=== PATIENT | female | born 1960 | race Hispanic/Latino ===

== ENCOUNTER 2017-06-30 10:43 | Inpatient (IN) | payer BC, OTHER ==
[~2017-06-30] VITALS: Ht 160 cm; Wt 104.8 kg
--- NOTE | 2017-10-10 17:24 | NUR ---
PATIENT IS HERE TODAY FOR PREADMISSION APPOINTMENT. SHE IS SCHEDULED FOR A LEFT TOTAL KNEE ARTHROPLASY ON 10/24/17. PATIENT IS ICELANDIC SPEAKING BUT ABLE TO COMMUNICATE VERY WELL WITH ME. SHE STATES SHE IS NOT SURE WHICH FAMILY MEMBER WILL BE TRANSPORTING HER HOME WHEN SHE IS DISCHARGED BUT HER SISTER AND BROTHER ARE SUPPOSED TO BE COMING FROM [place]. SHE IS CURRENTLY TAKING CARE OF HER THREE GRANDCHILDREN SO SHE IS ARRANGING CARE FOR THEM ALSO. SHE HAS FOUR STEPS UP ON TO THE PORCH AT HER HOME AND NO STEPS ONCE INSIDE THE HOME. SHE THINKS SHE MAY HAVE A WALKER AT HOME BUT IS GOING TO CHECK THAT IT IS THE CORRECT TYPE. SHE HAS A TUB/SHOWER COMBO THAT SHE IS CONCERNED ABOUT STEPPING UP AND INTO. WE TALKED ABOUT A SHOWER CHAIR OR BENCH AND SHE HAS A HAND HELD SHOWER HEAD. SHE WOULD LIKE TO HAVE PHYSICAL THERAPY AT [facility] SINCE SHE LIVES VERY CLOSE. THIS INFORMATION WILL BE SENT TO DR LOPEZ OFFICE AND TO THE MOBILE [facility]C [facility] FOR FOLLOW UP.
[2017-10-11] MEDS ORDERED: GLUCOPHAGE1000 MG PO (16:59)
[2017-10-11] MEDS ORDERED: VOLTAREN100 GM TOP (16:59)
[2017-10-11] MEDS ORDERED: HYDROCHLOROTHIA25 MG PO (17:00)
[2017-10-11] MEDS ORDERED: LANSOPRAZOLE30 MG PO (17:00)
[2017-10-11] MEDS ORDERED: LISINOPRIL40 MG PO (17:00)
[2017-10-11] MEDS ORDERED: LEVEMIR100 UNIT/1 SUB-Q (17:01)
[2017-10-11] MEDS ORDERED: AMLODIPINE BESYL5 MG PO (17:01)
[2017-10-11] MEDS ORDERED: GLIPIZIDE5 MG PO (17:01)
[2017-10-11] MEDS ORDERED: TERAZOSIN HCL2 MG PO (17:01)
[2017-10-11] MEDS ORDERED: EXCEDRIN MIGRA1 EAC2 PO (17:02)
[2017-10-11] MEDS ORDERED: ROSUVASTATIN CA10 MG PO (17:02)
--- NOTE | 2017-10-24 11:44 | NUR ---
10/24/17 1144 Chanel Rowe 1130 PT ARRIVED WITH 6L VIA MASK AND MAINTAINING OWN AIRWAY. PT ASLEEP OFF AND ON. VSS. 1139 O2 REMOVED, O2 SAT 100%. 1145 PT DENIES NAUSEA AND PAIN.
--- NOTE | 2017-10-24 12:20 | NUR ---
received pt to floor a@ 1220 via stretcher. cryo cuff on left knee. dressing is c/d/i with ria wrap in place. pt reports no pain, no itching, no nausea. slightly dizzy on the ride to ms. nausea patck in plce behind right ear. tedhose, scd's in place bilat. d5ns with 20meq @ 125. pt is drousy but is arousable to sound. pt is a/o x4.lungs sound clear throughout. heart sounds normal. continual pulse ox on. pt satuations @ 91% on ra. heart rate is normal @ 83. call light within reach.
--- NOTE | 2017-10-24 12:52 | NUR ---
PATIENT RESTING IN BED. FRESH ICE WATER. PATIENTS FAMILY IN ROOM. CALL LIGHT WITHIN REACH. NO OTHER NEEDS AT THIS TIME.
--- NOTE | 2017-10-24 13:31 | OR ---
[facility] [address] [place], [place] [address] Signed DATE OF OPERATION: 10/24/2017 SURGEON: Sabina Calle MD PREOPERATIVE DIAGNOSIS: Degenerative joint disease, left knee. POSTOPERATIVE DIAGNOSIS: Degenerative joint disease, left knee. PROCEDURE PERFORMED: Left total knee arthroplasty with computer navigation. GERIATRIC PERSONAL CARE AIDE: MIGUEL Bell. Yoana was present in critical positioning, retraction, and wound closure. ANESTHESIA: Spinal. BLOOD LOSS: Minimal. TOURNIQUET TIME: 57 minutes. IMPLANTS: Milton Triathlon size 4 femur, 3 tibia, 11 mm insert, and a 32 patella. BRIEF HISTORY: Lorraine is a 57-year-old female with severe arthritis in both knees. She had undergone nonoperative treatment for years and failed to get good satisfaction. Risks and benefits of operative treatment were discussed with her and she elected to proceed. DESCRIPTION OF PROCEDURE: Once consent was obtained, she was taken to the operating room. After adequate anesthesia, she was placed on operating room table. All downside pressure points are well padded. Left hip was placed on a bump and tourniquet was placed on the proximal thigh. Leg was then prepped and draped in the standard sterile fashion, exsanguinated using Esmarch bandage. Tourniquet inflated to 300 mmHg due to her hypertension. Electronically Signed By: SABINA CALLE MD 10/24/17 1331 PATIENT NAME: LORRAINE SO OPERATIVE REPORT DATE OF : 64 REPORT #: [id number] PHYSICIAN: SABINA CALLE MD PCP: VAN SHOEMAKER REPORT IS CONFIDENTIAL AND NOT TO BE RELEASED WITHOUT AUTHORIZATION [facility] [address], [place] [address] Signed Standard anterior approach through curved incision was taken through skin and subcutaneous tissue. Median parapatellar arthrotomy was performed. The infrapatellar fat pad was excised and the MCL was elevated of a sleeve around the posterior medial corner. Anterior horns of menisci were transected as was the ACL. PCL was found to be intact. The navigation guide was pinned to the distal femur and the femur was registered with the computer. The cutting block was then pinned in neutral alignment. The distal femoral cut was made. Distal femur was sized to a 4 and the cutting block was pinned in neutral alignment. The distal femoral cut was made and the bone was excised. Osteophytes were removed. The AP cutting block was then placed, aligned with the epicondylar axis. The anterior, posterior, chamfer cuts were made. The attention was turned to the proximal tibia. Navigation guide was pinned to the tibia and the tibia was registered. The cutting block was then pinned in neutral alignment and the cut was made with care taken to protect the patellar tendon and MCL. The menisci were removed. Posterior release performed off the femur. Posterior osteophytes were removed off the femur. The flexion and extension gaps were sized found to be symmetric at 11 mm. The trials were positioned. The knee was taken through range of motion and found to be quite stable. The patella was cut, sized, and drilled for a 32 patella. The distal femur was finished using the drill and the proximal tibia was finished using the keel punch. The bone surfaces were pulse lavaged, packed with dry Ray-Alexandru. Cement was mixed and reached proper consistency, displaced all implants on bone surfaces. Tibia was impacted in position first followed by the femur. All excess cement was removed. The polyethylene was snapped into position. Knee was extended and axially loaded. The patella was clamped and again any remaining cement was removed. The cement was allowed to harden. Once it hardened sufficiently, knee was flexed and the remaining cement was removed using osteotomes. Periarticular soft tissues were then injected with 100 mL ropivacaine and Toradol mixture. The knee was pulse lavaged at intervals throughout the procedure. A total of 3 L of antibiotic irrigation was used. The arthrotomy was then closed using #2 Stratafix, 0 Stratafix for the subcu tissue, and robert for the skin. The wound was dressed with Mepilex Ag dressing, ABD, and Christopher wrap. She tolerated the procedure well. All sponge, needle, and instrument counts were correct. Sabina Calle MD BA/MODL /[id number] Electronically Signed By: SABINA CALLE MD 10/24/17 1331 PATIENT NAME: LORRAINE SO OPERATIVE REPORT DATE OF : 64 REPORT #: [id number] PHYSICIAN: SABINA CALLE MD PCP: VAN SHOEMAKER REPORT IS CONFIDENTIAL AND NOT TO BE RELEASED WITHOUT AUTHORIZATION [address] [address] Signed Copies: ~ Electronically Signed By: SABINA CALLE MD 10/24/17 1331 PATIENT NAME: LORRAINE SO OPERATIVE REPORT DATE OF : 64 REPORT #: [id number] PHYSICIAN: SABINA CALLE MD PCP: VAN SHOEMAKER REPORT IS CONFIDENTIAL AND NOT TO BE RELEASED WITHOUT AUTHORIZATION
--- NOTE | 2017-10-24 14:00 | NUR ---
REPORTS NO PAIN. PT REPORTING ITCHING. BENADRYL 12.5 GIVEN.
--- NOTE | 2017-10-24 14:06 | NUR ---
PATIENT RESTING IN BED. PATIENT STATES SHE HAS NO PAIN. FRESH ICE WATER. CALL LIGHT WITHIN REACH. NO OTHER NEEDS AT THIS TIME.
--- NOTE | 2017-10-24 14:20 | NUR ---
PT WAS IN RM, LOOKING SOMEWHAT DISORIENTED. PT TOLD ME THAT SHE WAS REALLY DIZZY, BUT NOT NAUSEATED. I TOLD HER I WOULD GET HER RN, ALESSIO. SHE CAME IMMEDIATELY AND ATTENDED TO PT. WILL FOLLOW NEEDED
--- NOTE | 2017-10-24 15:59 | NUR ---
PT REPORTS PAIN 5/10 AFTER PHYSICAL THERAPY. PAIN MEDICATION GIVEN. PT REPORTS ITCHING STILL PRESENT. MEDICATION GIVEN.
--- NOTE | 2017-10-24 16:42 | NUR ---
pt reported itching. nubain given. eating regular diet now. no n/v. cryo cuff in place. scds and tedhose on. 500cc urine output. call light within reach.
--- NOTE | 2017-10-24 16:46 | NUR ---
PATIENT RESTING IN BED WATCHING TV. CRYO FILLED. CALL LIGHT WITHIN REACH. NO OTHER NEEDS AT THIS TIME.
--- NOTE | 2017-10-24 17:09 | NUR ---
PATIENT ASSISTED IN TRANSFERRING FROM THE BED TO THE CHAIR A 2 PERSON WITH FWW. PATIENT NOW RESTING IN CHAIR WITH DINNER AND WATCHING TV. CALL LIGHT WITHIN REACH. NO OTHER NEEDS AT THIS TIME.
--- NOTE | 2017-10-24 17:52 | NUR ---
PATIENT RESTING IN CHAIR WATCHING TV. PATIENT STATES THAT THE CHAIR FEELS VERY COMFORTABLE FOR HER BACK AND HER KNEE. PATIENT STATES PAIN LEVEL IS A 3 OUT OF 10. CALL LIGHT WITHIN REACH. NO OTHER NEEDS AT THIS TIME.
--- NOTE | 2017-10-24 18:04 | NUR ---
PT REPORTS PAIN AT 4/10. SMALL AMOUNT OF ITCHING. INFORMED PT WE HAVE MEDICATION AVAILIBLE. WILL CONTINUE TO MONITOR. CRYO CUFF IN PLACE. DRESSING C/D/I. SATURATION AT 92% ON RA. PULSE 92. UP TO BATHROOM. CALL LIGHT WITHIN REACH.
--- NOTE | 2017-10-24 18:26 | NUR ---
PT HAD A GOOD DAY. NO NAUSEA. SOME DIZZINESS WHEN COMING OT THE FLOOR. PAIN WAS 5/10. DILAUDID 0.5 GIVEN X1. PT REPORTED ITCHING. BENADRYL X2 AND NUBAIN X1 GIVEN. ANCEF GIVEN. PHYSICAL THERAPY TODAY. PT TOLLERATED WELL. 1100 URINE OUTPUT. BLOCK UP AT 2200. PT REPORTS CHRONIC CONSTIPATION. MONITOR BOWEL MOVEMENTS. BLOOD SUGAR AT DINNER WAS 240.
--- NOTE | 2017-10-24 19:47 | NUR ---
RECEIVED REPORT FROM DAY SHIFT RN. PATIENT IS RESTING IN RECLINER. PATIENT DENIES ANY PAIN AT THIS TIME. NO NEEDS NOTED AT THIS TIME. CALL LIGHT IN REACH.
--- NOTE | 2017-10-24 20:20 | NUR ---
PATIENT ASSESMENT COMPLETED. PATIENTS EVENING MEDICATIONS GIVEN PER ORDER. PATIENT RATES PAIN AT A 5/10. PATIENT GIVEN PRN PAIN MEDICATION PER ORDER. PATIENT ASSISTED TO THE RESTROOM FROM THE RECLINER. PATIENT IS A SBA W/FWW. PATIENT TOLERATES AMBULATION WELL. PATIENT IS NOW IN BED RESTING. PATIENT HAS TEDHOSE BILAT, SCDS ON BOTH LOWER EXT, AND HEEL, PROTECTORS IN PLACE. PATIENTS DRESSING ON LEFT KNEE IS C/D/I, NO DRAINAGE NOTED. PATIENT HAS CRYO APPLIED TO LEFT KNEE. PATIENT DENIES ANY FURTHER NEEDS AT THIS TIME. CALL LIGHT IN REACH.
--- NOTE | 2017-10-24 22:18 | NUR ---
CRYO CUFF AND ICE WATER REFILLED.
--- NOTE | 2017-10-24 23:27 | NUR ---
PATIENT IS RESTING IN BED WATCHING TV. PATIENT RATES PAIN AT A 5/10. PATIENT STATED "IT DOESNT HURT, IT ACHES" PATIENT GIVENT PRN PAIN MEDICATION PER ORDER. PATIENT DENIES ANY FURTHER NEEDS CALL LIGHT IN REACH. PATIENT HAS SCDS, TEDHOSE, HEEL PROTECTORS, AND CRYO IN PLACE. CRYO HAS SUFFICIENT ICE.
--- NOTE | 2017-10-25 00:25 | NUR ---
PATIENT IS RESTING IN BED WITH EYES CLOSED, RR 17. PATIENTS PULSE OX READINGS ARE WNL. CALL LIGHT IN REACH.
--- NOTE | 2017-10-25 02:53 | NUR ---
PATIENTS 0200 MEDICATIONS GIVEN PER ORDER. PATIENT RATES PAIN AT A 2/10. PATIENT DENIES THE NEED FOR ANY PAIN MEDICATION PATIENT HOWEVER REQUESTS "SOMETHING FOR ITCHING" PATIENT GIVEN PRN BENADRYL PER ORDER. PATIENTS VITALS TAKEN AND RECORDED BY PROFESSIONAL SERVICES MANAGER. PATIENT ASSISTED TO THE RESTROOM A SBA W/FWW. PATIENT TOLERATES AMBULATION WELL. PATIENT IS NOW BACK IN BED RESTING WITH TEDHOSE, SCDS, AND HEEL PROTECOTRS IN PLACE. CRYO APPLIED TO LEFT KNEE AND HAS SUFFICIENT ICE. PATIENT IS AAOX3. NO FURTHER NEEDS NOTED CALL LIGHT IN REACH.
--- NOTE | 2017-10-25 04:18 | NUR ---
PATIENT IS RESTING IN BED WITH EYES CLOSED BREATHING IS EVEN AND UNLABORED, RR 17. PULSE OX READINGS ARE WNL. CALL LIGHT IN REACH.
--- NOTE | 2017-10-25 05:19 | NUR ---
PATIENT RESTED WLL DURING THE LATER PART OF THE SHIFT. PATIENT IS ON AND ADA DIET AND IS TOLERATING IT WELL, NO NAUSEA NOTED. PATIENT IS ON RA. PATIENT IS SL AND IV FLUSHES WELL. PATIENTS URINE OUPUT IS QS. PATIENT HAS LACE MACHINE OPERATOR, TEDHOSE, AND SCDS BILAT IN PLACE. PATIENT HAS CRYO APPLIED TO LEFT KNEE. PATIENTS DRESSING ON LEFT KNEE IS C/D/I, NO DRAINAGE NOTED. PATIENT GIVEN PRN OXY X1 FOR PAIN IN HER LEFT KNEE. PATIENT RECEIVED X2 PRN BENADRYL FOR ITCHING. PATIENT HAS SCOPALAMINE PATCH BEHIND HER RIGHT EAR. PATIENT IS AAOX3 AND USES CALL LIGHT APPROPRIATELY.
--- NOTE | 2017-10-25 05:51 | NUR ---
PATIENTS MORNING MEDICATIONS GIVEN PER ORDER. PATIENT RATES PAIN AT A 2/10. PATIENT DENIES THE NEED FOR PAIN MEDICATION AT THIS TIME. PATIENT HOWEVER IS REQUESTING MEDICATION FOR ITCHING. PATIENT GIVEN PRN BENADRYL PER ORDER. PATIENT CONTINUES TO HAVE SCDS, TEDHOSE, AND HEEL PROTECTORS ON BLE. PATIENTS CCRYO REFILLED W.ICE AND APPLIED TO LEFT KNEE. PATIENTS DRESSING IS C/D/I, NO DRAINAGE NOTED. NO FURTHER NEEDS NOTED. CALL LIGHT IN REACH. PATIENT REMAINS AAOX3
--- NOTE | 2017-10-25 07:25 | NUR ---
PT IN BED. AROUSED TO VERBAL STIMULI. REPORTED PAIN WELL CONTROLLED. DENIED NEEDS AT THIS TIME. PERSONAL SUPPLIES AND CALL BUTTON IN REACH.
--- NOTE | 2017-10-25 08:18 | NUR ---
PATIENT ASSISTED TO RESTROOM BY A 1 PERSON TRANSFER WITH FWW. SET UP PATIENT FOR BED BATH. LINENS CHANGED. PATIENT IS NOW RESTING IN HER CHAIR WATCHING TV AND EATING BREAKFAST. FRESH ICE WATER. PATIENT STATES HER PAIN LEVEL IS A 3 OUT OF 10. CALL LIGHT WITHIN REACH. NO OTHER NEEDS AT THIS TIME.
--- NOTE | 2017-10-25 08:54 | NUR ---
PT UP WITH ROCIO, PHYSICAL THERAPIST. REPORTS PAIN 10/22. PT AMBULATING IN HALLS. SMILING, CHEERFUL.
--- NOTE | 2017-10-25 09:45 | NUR ---
PT SITTING UP IN RECLINER. DENIES NEEDS. PERSONAL SUPPLIES IN REACH, IS CALL BUTTON.
--- NOTE | 2017-10-25 10:27 | NUR ---
OCCUPATIONAL THERAPIST IN WITH PT, DISCUSSING WAYS TO DO ADLS APROPRIATELY. PERSONAL SUPPLIES IN REACH, CALL LIGHT IN REACH. PT REPORTED FEELING DIZZY, STATED THAT SHE FEELS "A LITTLE DIZZY" SITTING DOWN IN RECLINER. CHECKED VS, WNL. CHECKED BG, BG 200. WILL CONTINUE TO MONITOR.
--- NOTE | 2017-10-25 11:18 | NUR ---
PT SITTING UP IN RECLINER, TALKING ON PHONE. DENIED ANY FURTHER FEELING OF DIZZINESS. DENIED NEED FOR PAIN MEDICATION, RATED PAIN TO LEFT KNEE 3/10. PERSONAL SUPPLIES AND CALL BUTTON IN REACH. CRYO CUFF ON LEFT KNEE.
--- NOTE | 2017-10-25 11:48 | NUR ---
PT SITTING UP IN RECLINER, EATING LUNCH. PERSONAL SUPPLIES IN REACH, IS CALL BUTTON. PT DENIED NEEDS.
--- NOTE | 2017-10-25 12:48 | NUR ---
PT SITTING UP IN RECLINER, LEGS ELEVATED, CRYO CUFF ON. PT RATED PAIN TO LEFT KNEE 3/10, BUT REQUESTED 10 MG OXYCODONE FOR PAIN RELIEF FOR PHYSICAL THERAPY THIS AFTERNOON. GAVE OXYCODONE 10 MG PO PRN.
--- NOTE | 2017-10-25 13:25 | NUR ---
PATIENT RESTING IN THE CHAIR. PATIENTS FAMILY MEMBER IN ROOM. FRESH ICE IN CRYO. FRESH ICE WATER. CALL LIGHT WITHIN REACH. PATIENTS FAMILY MEMBER STATES SHE HELPED HER TO THE RESTROOM. NO OTHER NEEDS AT THIS TIME.
--- NOTE | 2017-10-25 14:29 | NUR ---
PT SITTING IN CHAIR-MENTIONED THAT PAIN WAS AT 3. PT RECEIVED A PHONE CALL, WANTED TO ANSWER. WILL FOLLOW NEEDED
--- NOTE | 2017-10-25 17:52 | NUR ---
PATIENT RESTING IN CHAIR ON HER PHONE. BRENDAN HALE STATED SHE PREVIOUSLY FILLED THE CRYO. FRESH ICE WATER. PATIENT STATES THAT HER PAIN LEVEL IS A 5 OUT OF 10. CALL LIGHT WITHIN REACH. NO OTHER NEEDS AT THIS TIME.
--- NOTE | 2017-10-25 18:03 | NUR ---
PT WORKED WITH PHYSICAL THERAPY TWICE THIS SHIFT. PER PHYSICAL THERAPY, PT MAY BE READY TO DISCHARGE TOMORROW. PT UP WITH STANDBY ASSIST WITH FWW. DRESSING TO LEFT KNEE C/D/I. PT HAD PRN OXYCODONE 10 MG X 1 THIS SHIFT. RATING PAIN 2-3/10 AT REST. CMS TO LLE INTACT. PT ON ADA DIET, TOLERATING WELL.
--- NOTE | 2017-10-25 19:15 | NUR ---
RECEIVED REPORT FROM DAY SHIFT RN. PATIENT IS SITTING IN RECLINER VISITING WITH FRIENDS FROM WORK. PATIENT HAS CRYO APPLIED TO LEFT KNEE. DRESSING C/D/I, NO DRAINAGE NOTED. PATIENT DENIES ANY PAIN. NO NEEDS NOTED. CALL LIGHT IN REACH.
--- NOTE | 2017-10-25 21:20 | NUR ---
PATIENT ASSSEMENT COMPLETED. PATIENTS EVENING MEDICATIONS GIVEN PER ORDER. PATIENT RATES PAIN AT A 5/10. PATIENT GIVEN PRN PAIN MEDICATION PER ORDER. PATIENT HAS TEDHOSE, SCDS, AND HEEL PROTECTORS ON BOTH LOWER EXT. PATIENTHAS CRYO APPLIED TO LEFT KNEE. PATIENTS DRESSING IS C/D/I, NO DRAINAGE NOTED. PATIENT DENIES ANY ITCHING. PATIENT DENIES ANY FURTHER NEEDS. PATIENT IS AAOX3. CALL LIGHT IN REACH.
--- NOTE | 2017-10-25 21:20 | NUR ---
PATIENT ASSESMENT COMPLETED. PATIENT ASSISTED TO THE RESTROOM A SBA W/FWW. PATIENT TOLERATED AMBULATION WELL. PATIENT WAS FINALLY ABLE TO VOID. PATIENT IS NOW BACK IN BED RESTING. SCDS ARE IN PLACE. PATIENT HAS ICE APPLIED TO RIGHT KNEE. PATIENTS EVENING MEDICATIONS GIVEN PER ORDER. PATIENT RATES PAIN AT A 7/10. PATIENT GIVEN PRN OXY PER ORDER FOR PAIN. PATIENT GIVEN CRACKERS, FRESH WATER, AND APPLE JUICE PER REQUEST. PATIENT DENIES ANY FURTHER NEEDS AT THIS TIME. CALL LIGHT IN REACH. X2 GUARDS IN THE ROOM.
--- NOTE | 2017-10-25 23:46 | NUR ---
PATIENT ASSISTED TO THE RESTROOM A SBA W/FWW. PATIENT IS STEADY ON HER FEET. PATIENT IS NO BACK IN BED RESTING. SCDS, TEDHOSE, AND HEEL PROTECOTRS IN PLACE. CRYO REFILLED WITH ICE. PATIENT RATES PAIN AT A 2/10. PATIENT DENIES THE NEED FOR PAIN MEDICATION AT THIS TIME. PATIENT DENIES ANY FURTHER NEEDS. CALL LIGHT IN REACH.
--- NOTE | 2017-10-26 01:21 | NUR ---
PATIENT IS RESTING IN BED WITH EYES CLOSED, RR 18. CALL LIGHT IN REACH.
--- NOTE | 2017-10-26 02:42 | NUR ---
PATIENT ASSISTED TO THE RESTROOM A SBA W/FWW. PATIENT WAS ABLE TO VOID. PATIENT ALSO HAD A LOOSE BM. PATIENT IS NOW BACK IN BED RESTING. PATIENT HAS SCDS, TEDHOSE, AND HEEL PROTECTORS IN PLACE. PATIENTS CRYO REFILLED W/ICE PER DIRECTIONS. PATIENT RATES PAIN AT A 7/10. PATIENT GIVEN PRN PAIN MEDICATION PER ORDER. PATIENT DENIES ANY FURTHER NEEDS AT THIS TIME. CALL LIGHT IN REACH.
--- NOTE | 2017-10-26 03:55 | NUR ---
PATIENT ASSISTED TO THE RESTROOM A SBA W/FWW. PATIENT COMPLAINS OF AN UPSET STOMACH. PATIENT GIVEN PRN ZOFRAN. PATIENT IS NOW RESTING IN RECLINER WITH CRYO IN PLACE. NO FURTHER NEEDS NOTED. CALL LIGHT IN REACH.
--- NOTE | 2017-10-26 04:49 | NUR ---
PATIENT ASSISTED TO THE BED FROM THE RECLINER A SBQ W/FWW. PATIENT STATED "FEELING MUCH BETTER, NOW TIRED" PATIENT TOLERATED AMBULATION WELL. SCDS, TEDHOSE, HEEL PROTECTORS, AND CRYO IN PLACE. NO FURTHER NEEDS CALL LIGHT IN REACH.
--- NOTE | 2017-10-26 05:25 | NUR ---
PATIENT RESTED WELL DURING THE LATER PART OF THE SHIFT. PATIENT IS ON AND ADA DIET AND IS TOLERATING IT WELL. PATIENT IS ON RA. PATIENT IS SL AND IV FLUSHES WELL. PATIENTS URINE OUPUT IS QS. PATIENT HAS CRYO, TEDHOSE, AND SCDS BILAT IN PLACE. PATIENT HAS CRYO APPLIED TO LEFT KNEE. PATIENTS DRESSING ON LEFT KNEE IS C/D/I, NO DRAINAGE NOTED. PATIENT GIVEN PRN OXY X2 FOR PAIN IN HER LEFT KNEE. PATIENT HAS SCOPALAMINE PATCH BEHIND HER RIGHT EAR. PATIENT IS AAOX3 AND USES CALL LIGHT APPROPRIATELY. PATIENT RECEIVED PRN ZOFRAN X1 FOR COMPLAINS OF AN "UPSET STOMACH".
--- NOTE | 2017-10-26 06:53 | NUR ---
PATIENT ASSISTED TO THE RESTROOM A SBA W/FWW. PATIENT RATES PAIN AT A 5/10 IN HER RIGHT KNEE. PATIENT GIVEN SCHEDULED TYELENOL. PATIENT REQUESTED A A SNACK, SUGAR FREE PUDDING AND CRACKERS. PATIENT STATED "I JUST FEEL FOGGY" PATIENT IS RESTING IN RECLINER WITH CRYO APPLIED TO LEFT KNEE. PATIENT DENIES ANY FURTHER NEEDS CALL LIGHT IN REACH. PATIENT IS AAOX3.
--- NOTE | 2017-10-26 07:24 | NUR ---
BEDSIDE REPORT RECIEVED FROM CASEY ALSTON. PT SITTING UP IN RECLINER SLEEPING SOUNDLY. PER ALECIA, PT WAS AWAKE MOST OF NIGHT, HAD VERY POOR SLEEP. PERSONAL SUPPLIES AND CALL BUTTON IN REACH.
--- NOTE | 2017-10-26 08:47 | NUR ---
PT SITTING UP IN RECLINER, EATING BREAKFAST, TOLERATING WELL. DENIES NAUSEA. REPORTED 8/10 PAIN TO LEFT KNEE. GAVE OXYCODONE 10 MG PO PRN. LEFT KNEE DRESSING C/D/I, CMS TO BLE INTACT. LUNGS CTA, HEART RATE REGULAR, BOWEL TONES ACTIVE. PT REFUSED MIRILAX THIS AM, STATED THAT SHE ALREADY HAD 3 LARGE BOWEL MOVEMENTS DURING WOOD ENGRAVER, AND DOES NOT WISH TO TAKE THIS AM. PERSONAL SUPPLIES IN REACH, CALL LIGHT IN REACH. CRYO CUFF IN PLACE TO LEFT KNEE.
--- NOTE | 2017-10-26 10:26 | NUR ---
PT SITTIING UP IN RECLINER. DENIED NEEDS. RATED PAIN 3/10, STATED THIS IS "OK". PERSONAL SUPPLIES AND CALL LIGHT IN REACH. CRYO CUFF ON LEFT KNEE.
--- NOTE | 2017-10-26 10:47 | NUR ---
PATIENT SITTING UP IN CHAIR. FRESH ICE WATER GIVEN. ICE IN CRYO. PATIENT RATES HER PAIN A 7 OUT OF 10 PAIN. RN NOTIFIED. CALL KVNG IN REACH. NO OTHER NEEDS AT THIS TIME.
--- NOTE | 2017-10-26 11:08 | NUR ---
PT C/O BREAKTHROUGH PAIN TO LEFT KNEE, 02/21. NO PAIN MEDICATION AVAILABLE. CALLED DR. LOPEZ, NOTIFIED HIM OF THIS. RECIEVED TORB FOR NORCO 7.5/325, 1-2 TABLETS PO PRN PAIN, GIVE 2 TABLETS NOW.
--- NOTE | 2017-10-26 11:13 | NUR ---
PATIENT ASSISTED TO THE RESTROOM BY BRENDAN HALE. PATIENT NOW RESTING IN CHAIR WATCHING TV. PATIENT WASHED HER FACE AND BRUSHED HER TEETH. LINENS CHANGED. ALEXIA STATED THAT SHE ALREADY FILLED THE CRYO WITH ICE. CALL LIGHT WITHIN REACH. NO OTHER NEEDS AT THIS TIME.
--- NOTE | 2017-10-26 11:19 | NUR ---
SPOKE WITH DR. LOPEZ REGARDING PRN NORCO AND SCHEDULED TYLENOL, EXCEEDS ACETAMINOPHEN ALLOWED DOSE. RECIEVED TORB TO D/C SCHEDULED TYLENOL.
--- NOTE | 2017-10-26 11:38 | NUR ---
PT UP, AMBULATING IN HALLS WITH PHYSICAL THERAPY, ROCIO REPORTED THAT PT DID STAIRS. PT DID C/0 / PAIN TO LEFT KNEE. GAVE NORCO 7.5/325 MG 2 TABS PO PRN.
--- NOTE | 2017-10-26 12:07 | NUR ---
PT UP IN RECLINER. STATED THAT HER KNEE IS STILL PAINFUL, BUT THAT THE PAIN IS IMPROVING. PT ATE 100% OF LUNCH. PERSONAL SUPPLIES AND CALL LIGHT IN REACH.
--- NOTE | 2017-10-26 13:47 | NUR ---
PT UP TO BATHROOM, VOIDED IN HAT, THE TO RECLINER. LEGS ELEVATED, CRYO CUFF IN PLACE TO LEFT KNEE. LEFT KNEE DRESSING IN PLACE. CMS TO BLE INTACT. PT REPORTED 4/10 PAIN TO LEFT KNEE. GAVE OXYCODONE 10 MG PO PRN.
--- NOTE | 2017-10-26 14:15 | NUR ---
PATIENT RESTING IN CHAIR WATCHING TV. PATIENTS FAMILY JUST CAME IN TO VISIT. FRESH ICE IN CRYO. FRESH ICE WATER. PATIENT STATES THAT SHE ALREADY WENT TO THE RESTROOM PRIOR TO ME GOING IN THERE. CALL LIGHT WITHIN REACH. NO OTHER NEEDS AT THIS TIME.
--- NOTE | 2017-10-26 15:05 | NUR ---
PT SITTING UP IN RECLINER. PT REPORTED PAIN 4/10 TO LEFT KNEE, BUT DECLINED PAIN MEDICATION AT THIS TIME.
--- NOTE | 2017-10-26 16:23 | NUR ---
PT IN THERAPY ROOM WITH Chi CHAN PT DID STAIRS AND IS NOW USING NU STEP MACHINE. CHECKED BG, 109.
--- NOTE | 2017-10-26 16:51 | NUR ---
PT SITTING UP IN RECLINER. REPORTS PAIN TO LEFT KNEE NOW 6/10 FOLLOWING WORKING WITH PHYSICAL THERAPY. GAVE NORCO 7.5/325 MG, 2 TABS PO PRN. PERSONAL SUPPLIES AND CALL LIGHT IN REACH. PT EATING DINNER, TOLERATING WELL. DENIES OTHER NEEDS.
--- NOTE | 2017-10-26 17:08 | NUR ---
PT UP WITH FWW WITH STANDBY ASSIST. TOLERATED PHYSICAL THERAPY WELL, WORKED WITH PHYSICAL THERAPY X 2 THIS SHIFT. PT DID C/O INCREASED PAIN TO LEFT KNEE TODAY, NOT COVERED BY PRN OXYCODONE, AND SCHEDULED PAIN RELIEVERS. NEW ORDER TO D/C ACETAMINOPHEN SCHEDULED, START NORCO 7.5/325 MG 1-2 PO PRN. PT REPORTS PAIN IS NOW CONTROLLED WITH PRN OXYCODONE AND PRN NORCO. PT TOLERATING ADA DIET WELL. DRESSING TO LEFT KNEE C/D/I, CMS INTACT. PT REFUSED MIRILAX THIS AM, SHE REPORTED HAVING 3 LARGE BOWEL MOVEMENTS ON NOC SHIFT.
--- NOTE | 2017-10-26 20:32 | NUR ---
cOOP WITH ASSESSMENT, REQUIRES MINIMUM OF ASSIST YO GO FROM CHAIR TO BED, USES FWW AND 1SBA, FRESSING LEFT KNEE CDI. KRISSY [place], SCDS, HEEL PROTECTOR, CRYO CUFF IN PLACE, NO C/O PAIN
--- NOTE | 2017-10-26 21:15 | NUR ---
ROUNDED CHARGE. SLICK RN IN THE ROOM. PATIENT DENIES ANY NEEDS AT THIS TIME. CALL LIGHT IN REACH.
--- NOTE | 2017-10-26 22:48 | NUR ---
medicated with 2 norco c.o left knee pain.
--- NOTE | 2017-10-27 01:58 | NUR ---
Up in recliner, legs elevated, cryocuff, agustin hose in place, no c/o pain
--- NOTE | 2017-10-27 02:19 | NUR ---
Back to bed, used fww. Encouraged to use call light. stated understanding. C/o left leg pain, medicated with 10mg oxycodone. Watching tv, no other requests
--- NOTE | 2017-10-27 04:55 | NUR ---
Up to brp, one assist and fww, voided, back to bed. Dressing left knee cdi good cms. cryocuff to area, no other c/o at this time
--- NOTE | 2017-10-27 05:31 | NUR ---
medicated with zofran 4mg po c/o nausea. Repositions self in bed, no co pain at this time
--- NOTE | 2017-10-27 05:53 | NUR ---
Pt currently awake, watching tv. Has been medicated withZofran po per c/o feeling nauseated this am. With Oxycodone 10mg and [place] 2 tabs per pain, effective pain relief stated. Left knee covered with ria wrap, cdi, agustin hose, scds and heel protectors bilat in place. Cryocuff in place. trace edema at ankles, present. SL intact. Pt Instructed to use call light when getting up or transferring from chair to standing position-bed to brp and back, as she is indepent in room at times. uses fww, pt stated understanding, continue to reinforce fall safety precautions. Pt concerned about taking care of 1yr and 3 yr old grandikids at home, reasured. CM and incoming Rn will be notified.
--- NOTE | 2017-10-27 06:52 | NUR ---
Up to chair from bed. one assist and fww. C/o left knee pain 03/24. medicated wtih 2 [place] 7/325mg. Cryocuff in place, good cms left knee. No further c/o lightheadness or upset stomach. Watching tv
[2017-10-27] MEDS ORDERED: XARELTO10 MG PO (07:51)
[2017-10-27] MEDS ORDERED: DICLOFENAC SODI75 MG PO (07:53)
[2017-10-27] MEDS ORDERED: HYDROCODON-ACE1 EA11 PO (07:54)
[2017-10-27] MEDS ORDERED: OXYCODONE HCL5 MG PO (07:55)
[2017-10-27] MEDS ORDERED: ONDANSETRON HCL4 MG PO (07:55)
--- NOTE | 2017-10-27 08:46 | NUR ---
PATIENT SITTING UP IN RECLINER, INCSCION SITE INTACT. EATING WELL, PAIN WELL CONTROLLED. PLAN TO DISCHARGE TODAY.
--- NOTE | 2017-10-27 09:00 | NUR ---
PT SITTING UP IN CHAIR ON PHONE, CASEY FERGUSON GIVING MEDS. ROOM TIDIED, FRESH ICE WATER, CRYO FILLED. STANDBY ASSISIT TO BATHROOM, PT INSISTED SHE COULD MAKE BACK TO BED UNASSISTED. THIS RETIREMENT ADMINISTRATOR ASKED HER TO BE SURE AND CALL. PT REPORTS THAT SHES UNABLE TO RAISE HER LEFT LEG WHILE SITTING IN CHAIR. THIS RETIREMENT ADMINISTRATOR REPORTED THIS INFO TO JARRED IN PT. NO OTHER NEEDS
--- NOTE | 2017-10-27 10:09 | NUR ---
PT SITTING UP IN CHAIR, LEGS ELEVATED.BRUSH GIVEN FOR HAIR. VITALS, I/OS DONE. CALL LIGHT IN REACH.
--- NOTE | 2017-10-27 11:30 | NUR ---
DISCUSSED DISCHARAGE INSTRUCITONS WITH PATIENT. DISCUSSED S/S OF INFECTION. MEDICAITON MANAGMENT. PATIENT ABLE TO TEACH BACK. PROVIDED DAUGHTER WITH SCRIPTS TO FILL, PATIENT VOIDING WELL. PATIENT ABLE TO TEACH BACK RESTRICITONS. WILL BE STAYING WITH DAUGTER NEXT COUPLE OF WEEKS.
--- NOTE | 2017-10-27 17:54 | NUR ---
FAXED CHART NOTES OVER TO [facility] INCLUDING FACESHEET, ORDER, H AND P, OP NOTE, PROG NOTES, PT AND OT EVAL AND NOTES.
--- NOTE | 2017-10-28 08:20 | NUR ---
OUTPATIENT THERAPY ORDERS AND CLINICALS FAXED TO [facility]. FAX CONFIRMATION RECEIVED. CALLED AND SPOKE WITH DEVYN, WHO STATES THEY RECEIVED ORDERS.
== END 2017-10-27 11:55 | disposition home or self-care (01) | DRG 470 ==
LOC: MS 07-25 06:45 → DSVR 10-24 06:50 → MS 10-24 06:50 → DSVR 10-24 09:20 → MS 10-24 09:45 → DSVR 10-24 12:10 → MS 10-26 08:55
PROVIDERS: ADMIT Specialist
PROC: 0SRD0J9 Replacement of Left Knee Joint with Synthetic Substitute, Cemented, Open Approach (ICD-10-PCS; principal; 2017-10-24 09:45)
DX: M17.12 Unilateral primary osteoarthritis, left knee (principal); G89.18 Other acute postprocedural pain; E11.9 Type 2 diabetes mellitus without complications; I10 Essential (primary) hypertension; K21.9 Gastro-esophageal reflux disease without esophagitis; E78.5 Hyperlipidemia, unspecified; K59.00 Constipation, unspecified; R42 Dizziness and giddiness; R11.0 Nausea; Z79.4 Long term (current) use of insulin
CPT/HCPCS: 01402; 36415; 64447; 64450; 76942; 80048; 85025; 96372; 96374; 96375; 96376; 97110; 97116; 97162; 97165; 97530; C1713; C1776; G0378; G8978; G8979; G8988; G8989; J0690; J1100; J1170; J1200; J2250; J2274; J2300; J2704; J2795; J3010; J7120